=== PATIENT | female | born 1980 | race Caucasian/White ===

== ENCOUNTER 2016-09-18 17:05 | Emergency (ER) | payer OTHER ==
[~2016-09-18] VITALS: Ht 165.1 cm; Wt 70.3 kg
[2016-09-18 17:10] VITALS: BP_SYST 112
[2016-09-18 18:02] LABS: CALCIUM 8.6 mg/dL (8.4-11.0); CREATININE 0.6 mg/dL (0.55-1.30); POTASSIUM 3.5 mmol/L (3.5-5.1)
[2016-09-18 18:05] LABS: INR 0.9 (0.8-1.2); PROTHROMBIN TIME 10.3 SECS (9.5-12.5)
[2016-09-18 18:06] LABS: BASOPHILS % (AUTO) 0.5 % (0.0-2.0); EOSINOPHILS % (AUTO) 0.6 % (0.0-4.0); HEMATOCRIT 34.4 % (36-48); LYMPHOCYTES # (AUTO) 1.8 K/uL (1.0-5.5); LYMPHOCYTES % (AUTO) 23.2 % (20.5-51.5); MEAN CORPUSCULAR HEMOGLOBIN 30 pg (27-31); MEAN CORPUSCULAR HGB CONC 35 % (32-36); MEAN CORPUSCULAR VOLUME 85 fL (79.0-98.0); MONOCYTES # (AUTO) 0.6 K/uL (0.0-1.0); MONOCYTES % (AUTO) 7.5 % (1.7-9.3); NEUTROPHILS # (AUTO) 5.5 K/uL (1.8-7.7); NEUTROPHILS % (AUTO) 68.2 % (40.0-70.0); PLATELET COUNT (AUTO) 233 K/uL (130-430); RED BLOOD CELL COUNT(AUTO) 4.05 MIL/uL (4.2-6.2); RED CELL DISTRIBUTION WIDTH 13.2 % (9.0-15.0); WHITE BLOOD COUNT (AUTO) 7.9 K/uL (4.8-10.8)
[2016-09-18 18:27] LABS: ALBUMIN 3.5 g/dL (3.4-4.8); TOTAL BILIRUBIN 1.5 mg/dL (0.0-1.0); TOTAL PROTEIN, SERUM 6.8 g/dL (6.4-8.3)
[2016-09-18 18:38] LABS: BILIRUBIN,URINE NEGATIVE (NEGATIVE); BLOOD, URINE 3+ (NEGATIVE); CLARITY/URINE CLEAR (CLEAR); COLOR,URINE YELLOW (YELLOW); GLUCOSE,URINE NEGATIVE (NEGATIVE); KETONES,URINE NEGATIVE (NEGATIVE); LEUKOCYTE ESTERASE ,URINE NEGATIVE (NEGATIVE); NITRITE, URINE NEGATIVE (NEGATIVE); PROTEIN URINE NEGATIVE (NEGATIVE); UROBILINOGEN,URINE 0.2 (0.2-1.0)
[2016-09-18 18:44] VITALS: BP_SYST 112
[2016-09-18 18:48] LABS: BACTERIA,URINE FEW /HPF (None Seen); MUCUS,URINE None Seen /LPF (None Seen); WBC,URINE 0-3 /HPF (0-3)
== END 2016-09-18 17:56 | disposition home or self-care (01) ==
LOC: SED 17:05
DX: O20.0 Threatened abortion (principal); Z3A.01 Less than 8 weeks gestation of pregnancy
CPT/HCPCS: 36415; 76801; 76817; 80053; 81000-TC; 84702-TC; 85025; 85610-TC; 85730-TC; 86886; 86900; 86901; 99285

== ENCOUNTER 2017-04-20 15:15 | Observation (INO) | payer OTHER ==
[~2017-04-20] VITALS: Ht 165.1 cm; Wt 87.1 kg
== END 2017-04-20 18:41 | disposition home or self-care (01) ==
LOC: SPU 15:15
PROVIDERS: ADMIT Obstetrics & Gynecology; ATTEND Obstetrics & Gynecology
DX: O62.9 Abnormality of forces of labor, unspecified (principal); Z3A.38 38 weeks gestation of pregnancy
CPT/HCPCS: G0378

== ENCOUNTER 2017-04-21 12:53 | Inpatient (IN) | payer OTHER ==
[~2017-04-21] VITALS: Ht 165.1 cm; Wt 87.1 kg
[2017-04-21] MEDS ORDERED: LR 1,000 ML IV ONE (13:28)
[2017-04-21] MEDS ORDERED: OXYTOCIN/NORMAL SALINE 1,000 ML IV SCH (13:28)
[2017-04-21] MEDS ORDERED: TERBUTALINE SULFATE 1 MG/ML VIAL SUBCUT ONE (13:30)
[2017-04-21] MEDS ORDERED: NALBUPHINE HCL 10 MG/ML AMP ONE (13:50)
[2017-04-21] MEDS: NALBUPHINE HCL 10 MG/ML AMP IVP PRN ×2 (13:57→16:35)
[2017-04-21 14:02] LABS: HEMATOCRIT 38.1 % (36-48); HEMOGLOBIN 12.8 g/dL (12.0-16.0); MEAN CORPUSCULAR HEMOGLOBIN 29 pg (27-31); MEAN CORPUSCULAR HGB CONC 34 % (32-36); MEAN CORPUSCULAR VOLUME 87 fL (79.0-98.0); RED BLOOD CELL COUNT(AUTO) 4.37 MIL/uL (4.2-6.2); RED CELL DISTRIBUTION WIDTH 12.7 % (9.0-15.0); WHITE BLOOD COUNT (AUTO) 20.2 K/uL (4.8-10.8)
[2017-04-21 14:29] LABS: BASOPHILS # (AUTO) 0.2 K/uL (0.0-0.2); BASOPHILS % (AUTO) 1.2 % (0.0-2.0); LYMPHOCYTES # (AUTO) 1.7 K/uL (1.0-5.5); LYMPHOCYTES % (AUTO) 8.5 % (20.5-51.5); MONOCYTES # (AUTO) 1.1 K/uL (0.0-1.0); MONOCYTES % (AUTO) 5.3 % (1.7-9.3)
[2017-04-21 14:31] LABS: PLATELET COUNT (AUTO) 186 K/uL (130-430)
[2017-04-21] MEDS ORDERED: fentaNYL CITRATE/PF 100 MCG/2 ML AMP ONE ×2 (15:39→17:54)
[2017-04-21] MEDS ORDERED: FENT2mCg/mL-ROPIVA0.2%/NS EPID 150 ML EP ONE (15:39)
[2017-04-21] MEDS: LR 1,000 ML IV SCH (20:45)
[2017-04-21 22:57] VITALS: BP_SYST 135
[2017-04-22] MEDS ORDERED: FENT2mCg/mL-ROPIVA0.2%/NS EPID 150 ML EP ONE (01:13)
[2017-04-22] MEDS ORDERED: AMPICILLIN SODIUM 2 GM in NS 100 ML IV ONE (01:45)
[2017-04-22] MEDS ORDERED: GENTAMICIN 100 mg/50 mL NS 50 ML IV ONE ×2 (01:45→01:48)
[2017-04-22] MEDS ORDERED: ACETAMINOPHEN 325 MG TABLET PO PRN ×2 (01:45→10:30)
[2017-04-22] MEDS ORDERED: AMPICILLIN SODIUM 2 GM VIAL ONE (01:50)
[2017-04-22] MEDS ORDERED: AMPICILLIN SODIUM 1 GM in NS 50 ML IV SCH (03:00)
[2017-04-22] MEDS ORDERED: OXYTOCIN/NORMAL SALINE 1,000 ML IV SCH (03:15)
[2017-04-22] MEDS ORDERED: LR 500 ML IV ONE (06:04)
[2017-04-22] MEDS ORDERED: ePHEDrine sulfate 50 MG/ML VIAL IVP PRN ×2 (06:15→09:30)
[2017-04-22] MEDS ORDERED: fentaNYL CITRATE/PF 100 MCG/2 ML AMP IVP ONE (06:15)
[2017-04-22] MEDS ORDERED: FENT2mCg/mL-ROPIVA0.2%/NS EPID 150 ML EP SCH (06:15)
[2017-04-22] MEDS ORDERED: AMPICILLIN SODIUM 1 GM VIAL ONE (06:44)
[2017-04-22] MEDS ORDERED: CITRIC ACID/SODIUM CITRATE 30 ML UDC ONE (08:51)
[2017-04-22] MEDS ORDERED: CEFAZOLIN 2 GM IVPB PREMIX 50 ML IV ONE ×2 (08:51→09:00)
[2017-04-22] MEDS ORDERED: CITRIC ACID/SODIUM CITRATE 30 ML UDC PO ONE (09:00)
[2017-04-22] MEDS ORDERED: MORPHINE SULFATE 10MG/10ML PF AMP EP ONE (09:11)
[2017-04-22] MEDS ORDERED: NS IRRIG SOLN 1000 ML IR ONE (09:11)
[2017-04-22] MEDS ORDERED: LR 1,000 ML IV.SOLN IV ONE (09:11)
[2017-04-22] MEDS ORDERED: LIDOCAINE 1% 10 MG/ML, 20 ML MDV INJ ONE (09:11)
[2017-04-22] MEDS ORDERED: OXYTOCIN 10 UNIT/ML VIAL IV ONE (09:11)
[2017-04-22] MEDS ORDERED: KETOROLAC TROMETHAMINE 30 MG VIAL IVP PRN ×2 (09:30→09:45)
[2017-04-22] MEDS ORDERED: LR 1,000 ML IV SCH ×2 (09:30→10:22)
[2017-04-22] MEDS ORDERED: MEPERIDINE HCL/PF 25 MG/ML DISP.SYRIN IVP PRN ×2 (09:30)
[2017-04-22] MEDS ORDERED: HYDROmorphone 2 MG/ML VIAL IVP PRN ×2 (09:30)
[2017-04-22] MEDS ORDERED: ONDANSETRON HCL 4 MG/2 ML VIAL IVP PRN ×2 (09:30→09:45)
[2017-04-22] MEDS ORDERED: HYDROmorphone 1 MG INJ. 1 MG/ML AMPUL IVP PRN ×2 (09:30→09:45)
[2017-04-22] MEDS ORDERED: NALBUPHINE HCL 10 MG/ML AMP IVP PRN (09:45)
[2017-04-22] MEDS ORDERED: GENTAMICIN 80 mg/100 mL NS 100 ML IV SCH ×2 (09:45→10:45)
[2017-04-22] MEDS ORDERED: NALOXONE HCL 0.4 MG/ML AMP (NARCAN) IVP PRN (09:45)
[2017-04-22] MEDS ORDERED: DIPHENHYDRAMINE INJ 50 MG/ML VIAL IVP PRN (09:45)
[2017-04-22] MEDS ORDERED: MORPHINE SULFATE 10MG/10ML PF AMP EP SCH (09:45)
[2017-04-22 10:22] VITALS: BP_SYST 127
[2017-04-22] MEDS ORDERED: OXYTOCIN/NORMAL SALINE 1,000 ML IV ONE (10:22)
[2017-04-22] MEDS ORDERED: LANOLIN 7 GM OINT. TP PRN (10:30)
[2017-04-22] MEDS ORDERED: DOCUSATE SODIUM 100 MG CAPSULE PO PRN (10:30)
[2017-04-22] MEDS ORDERED: RHO(D) IMMUNE GLOBULIN/MALTOSE 1500 UNITS/1.3 ML (WINHRO) IM PRN (10:30)
[2017-04-22] MEDS ORDERED: HYDROmorphone 2 MG/ML VIAL ONE (10:30)
[2017-04-22] MEDS ORDERED: ANUSOL 1 EA SUPP.RECT (PREPARATION H) RC PRN (10:30)
[2017-04-22] MEDS ORDERED: MEASLES,MUMPS&RUBELLA VACC/PF 12500 UNIT/0.5 ML VIAL SUBQ PRN (10:30)
[2017-04-22] MEDS ORDERED: OXYCODONE/ACETAMINOPHEN 5-325 TABLET PO PRN (10:30)
[2017-04-22] MEDS ORDERED: BISACODYL 10 MG/SUPPOSITORY RC PRN (10:30)
[2017-04-22] MEDS ORDERED: SENNOSIDES/DOCUSATE SODIUM 1 TAB TABLET(SENOKOT-S) PO PRN (10:30)
[2017-04-22] MEDS ORDERED: SIMETHICONE 80 MG TAB.CHEW PO PRN (10:30)
[2017-04-22] MEDS: CLINDAMYCIN 600 mg/50mL D5W 50 ML IV SCH ×2 (12:58→19:07)
[2017-04-22] MEDS ORDERED: CLINDAMYCIN 600 mg/50mL D5W 50 ML IV SCH (13:00)
[2017-04-22] MEDS ORDERED: TEMAZEPAM 15 MG CAPSULE PO PRN (21:00)
[2017-04-22] MEDS: LR 1,000 ML IV SCH (22:15)
[2017-04-23] MEDS: OXYCODONE/ACETAMINOPHEN 5-325 TABLET PO PRN (04:56)
[2017-04-23] MEDS: IBUPROFEN 600 MG TABLET PO SCH ×5 (05:56→23:43)
[2017-04-23 06:31] LABS: BASOPHILS # (AUTO) 0.1 K/uL (0.0-0.2); BASOPHILS % (AUTO) 0.4 % (0.0-2.0); EOSINOPHILS # (AUTO) 0.1 K/uL (0.0-0.4); EOSINOPHILS % (AUTO) 0.4 % (0.0-4.0); HEMATOCRIT 31.8 % (36-48); HEMOGLOBIN 10.5 g/dL (12.0-16.0); LYMPHOCYTES % (AUTO) 5.9 % (20.5-51.5); MEAN CORPUSCULAR HEMOGLOBIN 29 pg (27-31); MEAN CORPUSCULAR HGB CONC 33 % (32-36); MEAN CORPUSCULAR VOLUME 88 fL (79.0-98.0); MONOCYTES # (AUTO) 0.6 K/uL (0.0-1.0); MONOCYTES % (AUTO) 3.7 % (1.7-9.3); NEUTROPHILS # (AUTO) 15.5 K/uL (1.8-7.7); NEUTROPHILS % (AUTO) 89.6 % (40.0-70.0); PLATELET COUNT (AUTO) 161 K/uL (130-430); RED CELL DISTRIBUTION WIDTH 13.4 % (9.0-15.0); WHITE BLOOD COUNT (AUTO) 17.3 K/uL (4.8-10.8)
[2017-04-23] MEDS ORDERED: CLINDAMYCIN 600 mg/50mL D5W 50 ML IV ONE (06:47)
[2017-04-23] MEDS ORDERED: CLINDAMYCIN 600 mg/50mL D5W 50 ML IV SCH (07:00)
[2017-04-24] MEDS: IBUPROFEN 600 MG TABLET PO SCH ×2 (06:07→12:14)
[2017-04-24] MEDS: OXYCODONE/ACETAMINOPHEN 5-325 TABLET PO PRN (08:06)
== END 2017-04-24 14:05 | disposition home or self-care (01) | DRG 765 ==
LOC: SPU 12:53
PROVIDERS: ADMIT Obstetrics & Gynecology; ATTEND Obstetrics & Gynecology
PROC: 10907ZC Drainage of Amniotic Fluid, Therapeutic from Products of Conception, Via Natural or Artificial Opening (ICD-10-PCS; 2017-04-21)
PROC: 10D00Z1 Extraction of Products of Conception, Low, Open Approach (ICD-10-PCS; principal; 2017-04-22 09:00)
DX: O41.1230 Chorioamnionitis, third trimester, not applicable or unspecified (principal); O10.92 Unspecified pre-existing hypertension complicating childbirth; E66.9 Obesity, unspecified; O76 Abnormality in fetal heart rate and rhythm complicating labor and delivery; Z82.49 Family history of ischemic heart disease and other diseases of the circulatory system; Z37.0 Single live birth; Z3A.38 38 weeks gestation of pregnancy; O09.523 Supervision of elderly multigravida, third trimester; O99.214 Obesity complicating childbirth; Z68.32 Body mass index [BMI] 32.0-32.9, adult
CPT/HCPCS: 36415; 85025; 86592; 86886; 86900; 86901; 94760; J0290; J0690; J1170; J1580; J1885; J2001; J2274; J2300; J2590; J3010; J3490; J7120

== ENCOUNTER 2018-01-30 18:42 | Emergency (ER) | payer BC, OTHER ==
[~2018-01-30] VITALS: Ht 165.1 cm; Wt 70.8 kg
[2018-01-30 18:48] VITALS: BP_SYST 132
--- NOTE | 2018-01-30 18:48 | NUR ---
Patient to ER bed 7 to gown for evaluation. Side rails up.
--- NOTE | 2018-01-30 18:55 | NUR ---
Pt arrived to ED with complaints of abd cramping with "large" blood clots during urination. No signs of acute distress at this time
--- NOTE | 2018-01-30 18:58 | NUR ---
ER at bedside examining patient.
--- NOTE | 2018-01-30 19:21 | NUR ---
Pt endorsed to night RN. No signs of acute distress.
[2018-01-30 20:02] LABS: BASOPHILS # (AUTO) 0.1 K/uL (0.0-0.2); EOSINOPHILS # (AUTO) 0.2 K/uL (0.0-0.4); EOSINOPHILS % (AUTO) 2.9 % (0.0-4.0); HEMOGLOBIN 12.7 g/dL (12.0-16.0); LYMPHOCYTES % (AUTO) 34.6 % (20.5-51.5); MEAN CORPUSCULAR HEMOGLOBIN 30 pg (27-31); MEAN CORPUSCULAR HGB CONC 34 % (32-36); MEAN CORPUSCULAR VOLUME 89 fL (79.0-98.0); MONOCYTES # (AUTO) 0.3 K/uL (0.0-1.0); NEUTROPHILS # (AUTO) 3.1 K/uL (1.8-7.7); NEUTROPHILS % (AUTO) 55.5 % (40.0-70.0); PLATELET COUNT (AUTO) 238 K/uL (130-430); RED BLOOD CELL COUNT(AUTO) 4.17 MIL/uL (4.2-6.2); RED CELL DISTRIBUTION WIDTH 13.3 % (9.0-15.0); WHITE BLOOD COUNT (AUTO) 5.7 K/uL (4.8-10.8)
[2018-01-30 21:26] VITALS: BP_SYST 128
--- NOTE | 2018-01-30 21:26 | NUR ---
Patient given written and verbal discharge instructions and verbalizes understanding. ER MD KAMARA discussed with patient the results and treatment provided. Patient in stable condition. ID arm band removed. NO Rx given. Patient educated on pain management and to follow up with PMD. Pain Scale 0/10. Opportunity for questions provided and answered. Medication side effect fact sheet provided.
== END 2018-01-30 21:26 | disposition home or self-care (01) ==
LOC: SED 18:42
DX: O20.0 Threatened abortion (principal); Z3A.01 Less than 8 weeks gestation of pregnancy
CPT/HCPCS: 36415; 76830-TC; 76856-TC; 76857; 81025; 84702-TC; 85025; 99285

== ENCOUNTER 2018-02-02 11:40 | Outpatient (CLI) | payer BC | END 2018-02-02 20:40 | disposition home or self-care (01) | LOC: SLB 11:40 | PROVIDERS: ATTEND Obstetrics & Gynecology | DX: O02.1 Missed abortion (principal) | CPT/HCPCS: 36415; 84702-TC ==